=== PATIENT | male | born 1990 | race Native Hawaiian/Other Pacific Islander ===

== ENCOUNTER → 2017-06-02 16:45 | Emergency (ER) | payer OTHER | END | disposition home or self-care (01) | LOC: ED 16:40 | DX: M79.643 Pain in unspecified hand (principal) | CPT/HCPCS: 99281 ==

== ENCOUNTER 2018-04-16 18:22 | Emergency (ER) | payer OTHER ==
[~2018-04-16] VITALS: Ht 182.9 cm; Wt 81.6 kg
[2018-04-16 18:55] VITALS: BP 125/68; TEMP 98.5
== END 2018-04-16 18:55 | disposition home or self-care (01) ==
LOC: ED 18:22
DX: S05.12XA Contusion of eyeball and orbital tissues, left eye, initial encounter (principal); W22.8XXA Striking against or struck by other objects, initial encounter
CPT/HCPCS: 99281